=== PATIENT | male | born 1965 | race Hispanic/Latino ===

== ENCOUNTER 2017-08-29 08:17 | Emergency (ER) | payer SELFPAY ==
[2017-08-29] MEDS ORDERED: Ibuprofen 800 MG TAB ONE (09:37)
[2017-08-29] MEDS ORDERED: HYDROcodone/Acetaminophen 5/325 mg Tablet ONE (09:37)
--- NOTE | 2017-08-29 10:04 | RAD ---
3 VIEWS RIGHT WRIST: Date: 08/29/17 HISTORY: Swelling and pain for the last 3 days. Symptoms are worsening. COMPARISON: None. FINDINGS: Intercarpal and radiocarpal joint spaces are preserved. No fracture. No cortical irregularity. No per iosteal reaction. IMPRESSION: No fracture. POS: [facility]
== END 2017-08-29 09:56 | disposition home or self-care (01) ==
LOC: ERS 08:17
DX: M10.9 Gout, unspecified (principal); F17.210 Nicotine dependence, cigarettes, uncomplicated

== ENCOUNTER 2018-04-07 14:06 | Emergency (ER) | payer OTHER, SELFPAY ==
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
== END 2018-04-07 17:19 | disposition home or self-care (01) ==
LOC: ERS 14:06
DX: S50.812A Abrasion of left forearm, initial encounter (principal); F17.210 Nicotine dependence, cigarettes, uncomplicated; V89.2XXA Person injured in unspecified motor-vehicle accident, traffic, initial encounter

== ENCOUNTER 2018-04-27 09:00 | Emergency (ER) | payer SELFPAY ==
[2018-04-27 10:54] LABS: #Eosinphils 0.1 thou/uL (0.0-0.7); #Lymphocytes 1.6 thou/uL (1.20-3.40); #Monocytes 0.6 thou/uL (0.11-0.59); #Neutrophils 4.5 thou/uL (1.40-6.50); %Basophils 0.3 % (0.0-1.0); %Lymphocytes 24.2 % (21.0-51.0); %Monocytes 8.7 % (0.0-10.0); %Neutrophils 65.9 % (42.0-75.0); Hemoglobin 15.8 g/dL (14.0-18.0); Mean Corpuscular HGB CONC 34.9 g/dL (32.0-36.0); Mean Corpuscular Hemoglobin 32.5 pg (27.0-31.0); Mean Platelet Volume 6.3 fL (7.4-10.4); Platelet Count 232 thou/uL (130-400); RBC Distribution Width 11.7 % (11.5-14.5); Red Blood Cell (RBC) Count 4.87 mill/uL (4.70-6.10); White Blood Cell (WBC) Count 6.8 thou/uL (4.8-10.8)
[2018-04-27 11:14] LABS: ALT (SGPT) 16 U/L (8-55); AST (SGOT) 15 U/L (5-34); Albumin 4.4 g/dL (3.5-5.0); Alkaline Phosphatase 96 U/L (40-150); Anion Gap 14 mmol/L (10-20); BUN (Urea Nitrogen) 12 mg/dL (8.4-25.7); Bilirubin, Total 0.5 mg/dL (0.2-1.2); Calc. Creatinine Clearance 0 mL/min (70-130); Calcium 9.3 mg/dL (7.8-10.44); Carbon Dioxide 23 mmol/L (22-29); Chloride 105 mmol/L (98-107); Estimated GFR-MDRD Greater than 90; Globulin 3.4 g/dL (2.4-3.5); Glucose 94 mg/dL (70-105); Lipase 36 U/L (8-78); Potassium 3.9 mmol/L (3.5-5.1); Protein, Total 7.8 g/dL (6.0-8.3); Sodium 138 mmol/L (136-145)
[2018-04-27 11:18] LABS: CKMB 1.5 ng/mL (0-6.6); Troponin I Less than 0.010 ng/mL (< 0.028)
== END 2018-04-27 11:39 | disposition home or self-care (01) ==
LOC: ERS 09:00
DX: R10.32 Left lower quadrant pain (principal); F17.210 Nicotine dependence, cigarettes, uncomplicated
CPT/HCPCS: 80053; 82553; 83605; 83690; 84484; 85025; 85379; 93005; 96372; 96374

== ENCOUNTER 2018-06-03 07:03 | Emergency (ER) | payer OTHER, SELFPAY | END 2018-06-03 08:11 | disposition home or self-care (01) | LOC: ERS 07:03 | DX: M25.511 Pain in right shoulder (principal); F17.210 Nicotine dependence, cigarettes, uncomplicated | CPT/HCPCS: 99283 ==

== ENCOUNTER 2018-09-22 10:00 | Emergency (ER) | payer SELFPAY ==
[2018-09-22 10:39] LABS: #Lymphocytes 1.7 thou/uL (1.20-3.40); #Monocytes 1.6 thou/uL (0.11-0.59); #Neutrophils 9.8 thou/uL (1.40-6.50); %Basophils 0.1 % (0.0-1.0); %Monocytes 12.1 % (0.0-10.0); %Neutrophils 74.7 % (42.0-75.0); Hemoglobin 16.8 g/dL (14.0-18.0); Mean Corpuscular HGB CONC 35.3 g/dL (32.0-36.0); Mean Corpuscular Hemoglobin 31.4 pg (27.0-31.0); Mean Corpuscular Volume 88.8 fL (78.0-98.0); Mean Platelet Volume 6.3 fL (7.4-10.4); Platelet Count 225 thou/uL (130-400); RBC Distribution Width 11.1 % (11.5-14.5); Red Blood Cell (RBC) Count 5.35 mill/uL (4.70-6.10); White Blood Cell (WBC) Count 13.1 thou/uL (4.8-10.8)
[2018-09-22 11:00] LABS: ALT (SGPT) 15 U/L (8-55); AST (SGOT) 18 U/L (5-34); Albumin 4.3 g/dL (3.5-5.0); Alkaline Phosphatase 95 U/L (40-150); Anion Gap 12 mmol/L (10-20); BUN (Urea Nitrogen) 15 mg/dL (8.4-25.7); Bilirubin, Total 0.8 mg/dL (0.2-1.2); Calc. Creatinine Clearance 0 mL/min (70-130); Calcium 9.7 mg/dL (7.8-10.44); Carbon Dioxide 22 mmol/L (22-29); Chloride 98 mmol/L (98-107); Estimated GFR-MDRD Greater than 90; Globulin 4.4 g/dL (2.4-3.5); Glucose 103 mg/dL (70-105); Lipase 14 U/L (8-78); Potassium 3.4 mmol/L (3.5-5.1); Protein, Total 8.7 g/dL (6.0-8.3); Sodium 129 mmol/L (136-145)
[2018-09-22] MEDS ORDERED: Loperamide HCl 2 MG CAP ONE (11:22)
[2018-09-22] MEDS ORDERED: Ondansetron PF 4 MG/2 ML Vial ONE (11:22)
--- NOTE | 2018-09-22 11:25 | RAD ---
FRONTAL RADIOGRAPH CHEST: Date: 09-22-18 Comparison: None. History: Abdominal pain with nausea, vomiting, and diarrhea. FINDINGS: Mild increased linear interstitial density. No pneumothorax or pleural fluid. No focal consolidation or alveolar edema. IMPRESSION: No acute findings. POS: [facility]
--- NOTE | 2018-09-22 12:05 | CT ---
CT ABDOMEN AND PELVIS WITH IV CONTRAST: Date: 09/22/18 HISTORY: Upper abdominal pain and vomiting. FINDINGS: There are calcified granulomas in the spleen. No calcified gallstones are noted. The liver, pancreas, adrenal glands, and kidneys are normal. No free air, free fluid, or lymphadenopathy seen in the abdo men or pelvis. A normal appearing appendix is noted. The small bowel loops are not abnormally dilated . There are vascular calcifications without evidence of aneurysmal dilatation of the abdominal aorta. There are degenerative changes in the spine. There is a small, fat-containing inguinal hernia. IMPRESSION: No evidence of appendicitis or bowel obstruction. POS: [facility]
[2018-09-22 14:37] LABS: Bilirubin Negative (Negative); Blood, Urine Trace (Negative); Clarity CLEAR (Clear); Glucose, Urine (Dipstick) Negative (Negative); Leukocyte Negative (Negative); Nitrite Negative (Negative); Protein, Urine (Dipstick) Negative (Neg-Trace); pH, Urine 5.5 (5.0-9.0)
[2018-09-22 14:38] LABS: Bacteria/HPF None Seen HPF (None Seen); Hyaline Casts/LPF 0-3 HYALINE CAST LPF (0-3 Hyaline); Pathc Cast-AUWi Flag 0.14 (0-2.49); RBC/HPF 0-3 HPF (0-3); Squamous Epithelial None Seen HPF (0-3); WBC/HPF None Seen HPF (0-3)
[2018-09-22 14:41] LABS: Specific Gravity, Urine Greater than 1.060 (1.002-1.036)
[2018-09-22] MEDS ORDERED: Iopamidol 370 76% 50 ML VIAL FS ONE (16:30)
== END 2018-09-22 12:41 | disposition home or self-care (01) ==
LOC: ERS 10:00
DX: R10.10 Upper abdominal pain, unspecified (principal); R11.2 Nausea with vomiting, unspecified; R19.7 Diarrhea, unspecified; F17.210 Nicotine dependence, cigarettes, uncomplicated
CPT/HCPCS: 71045; 74177; 80053; 81015; 83690; 85025; 96374; J2405

== ENCOUNTER 2019-03-11 15:21 | Emergency (ER) | payer SELFPAY ==
[2019-03-11 15:50] LABS: #Lymphocytes 1.2 thou/uL (1.20-3.40); #Monocytes 0.4 thou/uL (0.11-0.59); #Neutrophils 5.5 thou/uL (1.40-6.50); %Basophils 0.2 % (0.0-1.0); %Eosinophils 0.1 % (0.0-10.0); %Lymphocytes 16.6 % (21.0-51.0); %Monocytes 5.5 % (0.0-10.0); %Neutrophils 77.6 % (42.0-75.0); Hemoglobin 16.8 g/dL (14.0-18.0); Mean Corpuscular HGB CONC 35.1 g/dL (32.0-36.0); Mean Corpuscular Hemoglobin 31.8 pg (27.0-31.0); Mean Corpuscular Volume 90.7 fL (78.0-98.0); Mean Platelet Volume 6.1 fL (7.4-10.4); Platelet Count 264 thou/uL (130-400); RBC Distribution Width 11.5 % (11.5-14.5); Red Blood Cell (RBC) Count 5.27 mill/uL (4.70-6.10); White Blood Cell (WBC) Count 7.1 thou/uL (4.8-10.8)
[2019-03-11 16:14] LABS: ALT (SGPT) 21 U/L (8-55); AST (SGOT) 27 U/L (5-34); Albumin 4.9 g/dL (3.5-5.0); Alkaline Phosphatase 91 U/L (40-150); Anion Gap 17 mmol/L (10-20); BUN (Urea Nitrogen) 19 mg/dL (8.4-25.7); Calc. Creatinine Clearance 0 mL/min (70-130); Calcium 10.6 mg/dL (7.8-10.44); Carbon Dioxide 23 mmol/L (22-29); Chloride 99 mmol/L (98-107); Estimated GFR-MDRD 79; Globulin 3.8 g/dL (2.4-3.5); Glucose 125 mg/dL (70-105); Lipase 12 U/L (8-78); Potassium 3.4 mmol/L (3.5-5.1); Protein, Total 8.7 g/dL (6.0-8.3); Sodium 136 mmol/L (136-145)
[2019-03-11] MEDS ORDERED: Ondansetron PF 4 MG/2 ML Vial ONE (18:44)
--- NOTE | 2019-03-11 18:47 | RAD ---
XR Chest 1 View Portable History: Chest pain Comparison: Radiograph 09/22/2018 Findings: Lungs are clear. No pneumothorax or effusion. Cardiac silhouette and mediastinal contours a re similar. No acute osseous abnormality. Impression: No acute intrathoracic abnormality.
== END 2019-03-11 20:28 | disposition home or self-care (01) ==
LOC: ERS 15:21
DX: E86.0 Dehydration (principal); R11.2 Nausea with vomiting, unspecified; F17.210 Nicotine dependence, cigarettes, uncomplicated
CPT/HCPCS: 36415; 71045; 80053; 82550; 83690; 85025; 93005; 96361; 96374; J2405

== ENCOUNTER 2019-04-26 14:57 | Emergency (ER) | payer SELFPAY ==
[2019-04-26] MEDS ORDERED: Ketorolac Tromethamine 30 MG/ML VIAL ONE (15:59)
--- NOTE | 2019-04-26 17:06 | CT ---
CT LUMBAR SPINE WITHOUT CONTRAST: INDICATIONS: Fall with injury to low back. Low back pain. Radiation to right lower extremity. COMPARISON: CT lumbar spine dated 08/12/2015. TECHNIQUE: Axial tomograms obtained with multiplanar reconstructions. FINDINGS: Degenerative changes of the lumbar spine again noted. No evidence of compression deformity or acute fracture. Prominent osteophytes from the lumbar vertebrae. Degenerative disk changes are seen at mu ltiple levels. Vacuum phenomena seen at L3-L4, L4-L5, and L5-S1, with loss of disk space. These fin dings appear stable from the prior exam. At T12-L1, posterior disk bulge with calcification along the posterior disk margin mildly flattens th e thecal sac. No central canal stenosis. At L1-L2, mild disk bulge without central canal stenosis. At L2-L3, broad-based disk bulge with prominent facet and ligamentous hypertrophy, resulting in moder ate central canal stenosis. Left foraminal stenosis due to hypertrophic change and disk bulge. At L3-L4, posterior disk bulge. There is a posterior osteophyte extending from the inferior corner o f L3. These changes compress the thecal sac and are associated with facet and ligamentous hypertroph y, resulting in moderate to severe central canal stenosis. Bilateral foraminal stenosis due to hyper trophic change, more prominent on the left. At L4-L5, disk bulge is seen with small posterior spurs. Facet and ligamentous hypertrophy. Moderat e central canal stenosis. Bilateral foraminal stenosis secondary to hypertrophic change. At L5-S1, a tiny gas pocket is seen in the spinal canal, slightly to the right of midline, along the posterior L5 vertebra, just above the L5-S1 disk space. Diffuse disk bulge at L5-S1 with bilateral f oraminal extension, more prominent on the right. The tiny gas pocket indicates disk extrusion with g as from the disk space extending superiorly, along the posterior margin of the L5 vertebra, and the s danny canal mildly compressing the anterior thecal sac. There is moderate central canal stenosis at the disk space. Bilateral foraminal stenosis due to hypertrophic change. IMPRESSION: Degenerative disk changes at all levels of the lumbar spine, as described. There is no evidence of a cute fracture or compression. Central canal and foraminal stenosis at multiple levels. New findings at the L5-S1 level, as described above. POS: [facility]
== END 2019-04-26 19:40 | disposition home or self-care (01) ==
LOC: ERS 14:57
DX: M54.42 Lumbago with sciatica, left side (principal); F17.210 Nicotine dependence, cigarettes, uncomplicated
CPT/HCPCS: 72131; 96372; J1885

== ENCOUNTER 2019-05-26 08:17 | Emergency (ER) | payer SELFPAY ==
[2019-05-26 08:49] LABS: #Eosinphils 0.1 thou/uL (0.0-0.7); #Lymphocytes 1.2 thou/uL (1.20-3.40); #Monocytes 0.6 thou/uL (0.11-0.59); %Basophils 0.4 % (0.0-1.0); %Eosinophils 0.7 % (0.0-10.0); %Lymphocytes 15.4 % (21.0-51.0); %Monocytes 7.4 % (0.0-10.0); %Neutrophils 76.1 % (42.0-75.0); Hemoglobin 16.9 g/dL (14.0-18.0); Mean Corpuscular HGB CONC 34.9 g/dL (32.0-36.0); Mean Corpuscular Hemoglobin 32.1 pg (27.0-31.0); Mean Corpuscular Volume 91.9 fL (78.0-98.0); Mean Platelet Volume 6.1 fL (7.4-10.4); Platelet Count 287 thou/uL (130-400); RBC Distribution Width 11.6 % (11.5-14.5); Red Blood Cell (RBC) Count 5.25 mill/uL (4.70-6.10); White Blood Cell (WBC) Count 7.9 thou/uL (4.8-10.8)
[2019-05-26 09:06] LABS: ALT (SGPT) 18 U/L (8-55); AST (SGOT) 16 U/L (5-34); Albumin 4.7 g/dL (3.5-5.0); Alkaline Phosphatase 101 U/L (40-150); Anion Gap 14 mmol/L (10-20); BUN (Urea Nitrogen) 12 mg/dL (8.4-25.7); Bilirubin, Total 0.6 mg/dL (0.2-1.2); Calc. Creatinine Clearance 0 mL/min (70-130); Calcium 10.3 mg/dL (7.8-10.44); Carbon Dioxide 25 mmol/L (22-29); Chloride 102 mmol/L (98-107); Estimated GFR-MDRD 88; Globulin 3.3 g/dL (2.4-3.5); Glucose 125 mg/dL (70-105); Lipase 23 U/L (8-78); Potassium 3.6 mmol/L (3.5-5.1); Sodium 137 mmol/L (136-145)
[2019-05-26] MEDS ORDERED: Ondansetron ODT 4 MG TAB ONE (09:09)
--- NOTE | 2019-05-26 09:48 | RAD ---
EXAM: Single view of the chest HISTORY: Abdominal pain with nausea and vomiting COMPARISON: 03/11/2019 FINDINGS: Single view of the chest shows a normal sized cardiomediastinal silhouette. There is no joe dence of consolidation, mass, or pleural effusion. The bones are unremarkable. IMPRESSION: No evidence of acute cardiopulmonary disease
[2019-05-26] MEDS ORDERED: Ondansetron PF 4 MG/2 ML Vial ONE (10:06)
--- NOTE | 2019-05-26 10:53 | CT ---
CT ABDOMEN PELVIS WITH IV CONTRAST: HISTORY: Abdominal pain, vomiting, nausea. Colonic resection in 2006 COMPARISON: 09/22/2018 FINDINGS: The lung bases are clear. No calcific gallstones are seen. Multiple calcified splenic granulomas are again seen. The liver, pancreas, adrenal glands and kidneys appear normal. No free air, free fluid or lymphadenopathy seen in the abdomen or pelvis. A normal-appearing appendix is seen. The small bowel loops are not abnormally dilated. There are vascular calcifications without evidence of aneurysmal dilatation of the abdominal aorta. Degenerative changes are present in the spine. Small fat-containing bilateral inguinal hernia, left larger than right are seen. IMPRESSION: No acute process.
[2019-05-26] MEDS ORDERED: ISOVUE-370 76%-LOCM 1 ML ONE (17:13)
--- NOTE | 2019-05-29 01:03 | EKG ---
Test Reason : Blood Pressure : / mmHG Vent. Rate : 050 BPM Atrial Rate : 050 BPM P-R Int : 174 ms QRS Dur : 092 ms QT Int : 472 ms P-R-T Axes : 027 045 043 degrees QTc Int : 430 ms Sinus bradycardia Otherwise normal ECG Confirmed by COLT ANDRADE ([id number]), newspaper editor managing RAFAT PIPER ([id number]) on 05/29/2019 1:02:17 AM Referred By: Confirmed By:COLT ANDRADE
== END 2019-05-26 11:30 | disposition home or self-care (01) ==
LOC: ERS 08:17
DX: R10.9 Unspecified abdominal pain (principal); R00.1 Bradycardia, unspecified; R11.2 Nausea with vomiting, unspecified; R10.815 Periumbilic abdominal tenderness; F17.210 Nicotine dependence, cigarettes, uncomplicated
CPT/HCPCS: 36415; 71045; 74177; 80053; 83690; 84484; 85025; 93005; 96361; 96374; J2405; Q0162; Q9966

== ENCOUNTER 2022-09-08 09:48 | Inpatient (IN) | payer OTHER, SELFPAY ==
[2022-09-08] MEDS ORDERED: Morphine 4 MG/ML VIAL ONE ×2 (10:19→11:41)
[2022-09-08] MEDS ORDERED: CEFAZOLIN 2 GM in Sodium Chloride 0.9% 100 ML IVPB SCH (12:00)
[2022-09-08] MEDS ORDERED: Ondansetron PF 4 MG/2 ML Vial IVP PRN (13:40)
[2022-09-08] MEDS ORDERED: Dextrose 5% in Water 1,000 ML IV PRN (13:40)
[2022-09-08] MEDS ORDERED: Ondansetron ODT 4 MG TAB PO PRN (13:40)
[2022-09-08] MEDS ORDERED: HYDROcodone/Acetaminophen 10/325 mg Tablet PO PRN (13:40)
[2022-09-08] MEDS ORDERED: hydrALAZINE 20 MG/ML VIAL SLOW IVP PRN (13:40)
[2022-09-08] MEDS ORDERED: Dextrose 50% Abboject 50 ML SYRINGE SLOW IVP PRN (13:40)
[2022-09-08] MEDS ORDERED: Morphine 4 MG/ML VIAL SLOW IVP PRN ×2 (13:40→13:56)
[2022-09-08] MEDS ORDERED: traMADol HCl 50 MG TAB PO PRN ×2 (13:47→20:33)
[2022-09-08] MEDS ORDERED: Cyclobenzaprine 10 MG TAB PO PRN (13:47)
[2022-09-08 14:13] LABS: #Eosinphils 0.1 thou/uL (0.0-0.7); #Lymphocytes 2.3 thou/uL (1.20-3.40); #Monocytes 0.9 thou/uL (0.11-0.59); #Neutrophils 7.7 thou/uL (1.40-6.50); %Basophils 0.1 % (0.0-1.0); %Eosinophils 0.7 % (0.0-10.0); %Lymphocytes 21.3 % (21.0-51.0); %Monocytes 8.3 % (0.0-10.0); %Neutrophils 69.6 % (42.0-75.0); Hemoglobin 15.2 g/dL (14.0-18.0); Mean Corpuscular HGB CONC 34.1 g/dL (32.0-36.0); Mean Corpuscular Hemoglobin 32.2 pg (27.0-31.0); Mean Corpuscular Volume 94.5 fl (78.0-98.0); Mean Platelet Volume 6.4 fL (7.4-10.4); Platelet Count 249 10x3/uL (130-400); RBC Distribution Width 11.8 % (11.5-14.5); Red Blood Cell (RBC) Count 4.73 mill/uL (4.70-6.10)
[2022-09-08 14:27] LABS: Phosphorus 3.4 mg/dL (2.3-4.7)
[2022-09-08 14:30] LABS: ALT (SGPT) 22 U/L (8-55); AST (SGOT) 18 U/L (5-34); Albumin 3.9 g/dL (3.5-5.0); Alkaline Phosphatase 75 U/L (40-110); Anion Gap 13 mmol/L (10-20); BUN (Urea Nitrogen) 14 mg/dL (8.4-25.7); Bilirubin, Total 0.4 mg/dL (0.2-1.2); Calc. Creatinine Clearance 0 mL/min (70-130); Carbon Dioxide 23 mmol/L (22-29); Chloride 103 mmol/L (98-107); Estimated GFR 88; Globulin 3.4 g/dL (2.4-3.5); Glucose 140 mg/dL (70-105); Magnesium 2.2 mg/dL (1.6-2.6); Protein, Total 7.3 g/dL (6.0-8.3); Sodium 135 mmol/L (136-145)
[2022-09-08 15:18] VITALS: BMI 39.9
[2022-09-08] MEDS: Acetaminophen 500 MG TAB PO SCH ×2 (18:38→23:27)
[2022-09-08] MEDS: Ketorolac Tromethamine 30 MG/ML VIAL IVP SCH ×2 (18:38→23:28)
[2022-09-08] MEDS: traMADol HCl 50 MG TAB PO SCH ×2 (18:39→23:27)
[2022-09-08] MEDS: Senokot S 8.6-50 MG TAB PO SCH (20:14)
[2022-09-08] MEDS: Famotidine 20 MG TAB PO SCH (20:14)
[2022-09-08 20:41] LABS: SARS-CoV-2 NAA Rapid Test Not Detected (NotDetected)
[2022-09-08] MEDS ORDERED: Sodium Chloride 0.9% 1,000 ML IV SCH (23:00)
[2022-09-09] MEDS: Acetaminophen 500 MG TAB PO SCH ×4 (05:26→23:22)
[2022-09-09] MEDS: traMADol HCl 50 MG TAB PO SCH ×4 (05:27→23:22)
[2022-09-09] MEDS: Ketorolac Tromethamine 30 MG/ML VIAL IVP SCH ×4 (05:27→23:23)
[2022-09-09 06:35] LABS: #Basophils 0.1 thou/uL (0.0-0.2); #Eosinphils 0.2 thou/uL (0.0-0.7); #Lymphocytes 2.3 thou/uL (1.20-3.40); #Neutrophils 4.3 thou/uL (1.40-6.50); %Basophils 0.8 % (0.0-1.0); %Eosinophils 2.5 % (0.0-10.0); %Lymphocytes 29.7 % (21.0-51.0); %Monocytes 12.7 % (0.0-10.0); %Neutrophils 54.4 % (42.0-75.0); Hemoglobin 15.2 g/dL (14.0-18.0); Mean Corpuscular HGB CONC 33.5 g/dL (32.0-36.0); Mean Corpuscular Volume 95.8 fl (78.0-98.0); Platelet Count 244 10x3/uL (130-400); Red Blood Cell (RBC) Count 4.75 mill/uL (4.70-6.10); White Blood Cell (WBC) Count 7.8 10x3/uL (4.8-10.8)
[2022-09-09 06:50] LABS: Phosphorus 3.6 mg/dL (2.3-4.7)
[2022-09-09 06:59] LABS: Anion Gap 12 mmol/L (10-20); BUN (Urea Nitrogen) 18 mg/dL (8.4-25.7); Calc. Creatinine Clearance 151 mL/min (70-130); Calcium 8.6 mg/dL (7.8-10.44); Carbon Dioxide 23 mmol/L (22-29); Chloride 104 mmol/L (98-107); Estimated GFR 102; Glucose 116 mg/dL (70-105); Magnesium 2.1 mg/dL (1.6-2.6); Sodium 135 mmol/L (136-145)
[2022-09-09] MEDS: Famotidine 20 MG TAB PO SCH ×2 (07:52→20:25)
[2022-09-09] MEDS: Senokot S 8.6-50 MG TAB PO SCH ×2 (07:52→20:25)
[2022-09-09] MEDS: Polyethylene Glycol 3350 17 GM Packet PO SCH (07:53)
[2022-09-09] MEDS ORDERED: Fentanyl 100 MCG/2 ML VIAL ONE (10:54)
[2022-09-09] MEDS ORDERED: Midazolam HCl 2 mg/2 ml Vial ONE (10:54)
[2022-09-09] MEDS ORDERED: Ropivacaine 0.5% HCl/PF (150 MG/30 ML VIAL) ONE (10:54)
[2022-09-09] MEDS ORDERED: HYDROcodone/Acetaminophen 10/325 mg Tablet PO PRN (11:33)
[2022-09-09] MEDS ORDERED: Fentanyl 250 MCG/5 ML VIAL ONE (11:35)
[2022-09-09] MEDS ORDERED: FENTANYL 50 MCG/ML 1 ML VIAL SLOW IVP PRN (11:37)
[2022-09-09] MEDS ORDERED: CEFAZOLIN 2 GM VIAL ONE (11:43)
[2022-09-09] MEDS ORDERED: Sodium Chloride 0.9% 100 ML ONE (11:43)
[2022-09-09] MEDS ORDERED: Ketorolac Tromethamine 30 MG/ML VIAL ONE (11:50)
[2022-09-09] MEDS ORDERED: ePHEDrine 50 MG/ML VIAL ONE (11:50)
[2022-09-09] MEDS ORDERED: Ondansetron PF 4 MG/2 ML Vial ONE (11:50)
[2022-09-09] MEDS ORDERED: Glycopyrrolate 0.2 MG/ML 5 ML SYRINGE ONE (11:50)
[2022-09-09] MEDS ORDERED: Rocuronium Bromide 10 MG/ML (10ML VIAL) ONE (11:50)
[2022-09-09] MEDS ORDERED: Dexamethasone 20 MG/5 ML VIAL ONE (11:50)
[2022-09-09] MEDS ORDERED: PROPOFOL 200 MG/20 ML VIAL ONE (11:50)
[2022-09-09] MEDS ORDERED: NEOSTIGMINE 3 MG/3 ML SYR 3 MG/3 ML SYRINGE ONE (11:50)
[2022-09-09] MEDS ORDERED: HYDROmorphone 2 MG/ML VIAL SLOW IVP PRN (14:02)
[2022-09-09] MEDS ORDERED: Ondansetron HCl/PF 4 MG/2 ML Vial IVP PRN (14:02)
[2022-09-09] MEDS: Morphine 4 MG/ML VIAL SLOW IVP PRN (18:46)
[2022-09-09] MEDS ORDERED: CEFAZOLIN 2 GM in Sodium Chloride 0.9% 100 ML IVPB SCH (20:00)
[2022-09-09] MEDS: Cyclobenzaprine 10 MG TAB PO PRN (20:25)
[2022-09-09] MEDS: CEFAZOLIN 2 GM in Sodium Chloride 0.9% 100 ML IVPB SCH (20:28)
[2022-09-10] MEDS: Morphine 4 MG/ML VIAL SLOW IVP PRN (01:14)
[2022-09-10] MEDS: CEFAZOLIN 2 GM in Sodium Chloride 0.9% 100 ML IVPB SCH ×2 (04:59→12:36)
[2022-09-10] MEDS: Acetaminophen 500 MG TAB PO SCH ×4 (05:00→23:15)
[2022-09-10] MEDS: Ketorolac Tromethamine 30 MG/ML VIAL IVP SCH ×4 (05:01→23:15)
[2022-09-10] MEDS: traMADol HCl 50 MG TAB PO SCH ×4 (05:01→23:14)
[2022-09-10 07:58] LABS: #Lymphocytes 1.4 thou/uL (1.20-3.40); #Monocytes 1.2 thou/uL (0.11-0.59); #Neutrophils 12.6 thou/uL (1.40-6.50); %Basophils 0.2 % (0.0-1.0); %Eosinophils 0.1 % (0.0-10.0); %Lymphocytes 8.9 % (21.0-51.0); %Monocytes 7.8 % (0.0-10.0); Hemoglobin 14.9 g/dL (14.0-18.0); Mean Corpuscular HGB CONC 33.8 g/dL (32.0-36.0); Mean Corpuscular Volume 94.6 fl (78.0-98.0); Mean Platelet Volume 6.3 fL (7.4-10.4); Platelet Count 248 10x3/uL (130-400); RBC Distribution Width 11.6 % (11.5-14.5); Red Blood Cell (RBC) Count 4.65 mill/uL (4.70-6.10); White Blood Cell (WBC) Count 15.2 10x3/uL (4.8-10.8)
[2022-09-10] MEDS: Senokot S 8.6-50 MG TAB PO SCH ×2 (10:06→20:35)
[2022-09-10] MEDS: Polyethylene Glycol 3350 17 GM Packet PO SCH (10:07)
[2022-09-10] MEDS: Famotidine 20 MG TAB PO SCH ×2 (10:07→20:35)
[2022-09-10] MEDS: Enoxaparin Sodium 30 MG/0.3 ML SYRINGE SC SCH (20:35)
[2022-09-11] MEDS: Ketorolac Tromethamine 30 MG/ML VIAL IVP SCH ×2 (05:18→12:27)
[2022-09-11] MEDS: Acetaminophen 500 MG TAB PO SCH ×2 (05:19→12:26)
[2022-09-11] MEDS: traMADol HCl 50 MG TAB PO SCH ×2 (05:19→12:26)
[2022-09-11] MEDS: Cyclobenzaprine 10 MG TAB PO PRN (08:28)
[2022-09-11] MEDS: Famotidine 20 MG TAB PO SCH (08:28)
[2022-09-11] MEDS: Enoxaparin Sodium 30 MG/0.3 ML SYRINGE SC SCH (08:28)
[2022-09-11 08:31] VITALS: TEMP 98.4
[2022-09-11] MEDS: Polyethylene Glycol 3350 17 GM Packet PO SCH (08:34)
[2022-09-11] MEDS: Senokot S 8.6-50 MG TAB PO SCH (08:34)
[2022-09-11 13:10] VITALS: BP 161/81
== END 2022-09-11 15:10 | disposition home or self-care (01) | DRG 502 ==
LOC: ERS 09:48 → SURG A 13:36
PROVIDERS: ADMIT Surgery; ATTEND Surgery
PROC: 0QSF04Z Reposition Left Patella with Internal Fixation Device, Open Approach (ICD-10-PCS; principal; 2022-09-09)
PROC: 0LQL0ZZ Repair Right Upper Leg Tendon, Open Approach (ICD-10-PCS; 2022-09-09)
DX: S82.002A Unspecified fracture of left patella, initial encounter for closed fracture (principal); S76.111A Strain of right quadriceps muscle, fascia and tendon, initial encounter; E66.9 Obesity, unspecified; Z20.822 Contact with and (suspected) exposure to COVID-19; I10 Essential (primary) hypertension; Z68.39 Body mass index [BMI] 39.0-39.9, adult; Y92.096 Garden or yard of other non-institutional residence as the place of occurrence of the external cause; F17.210 Nicotine dependence, cigarettes, uncomplicated; W01.0XXA Fall on same level from slipping, tripping and stumbling without subsequent striking against object, initial encounter
CPT/HCPCS: 36415; 71045; 80048; 80053; 83735; 84100; 85025; 93005; 93010; 96374; 96376; C1713; G0390; J1100; J1650; J1885; J2250; J2270; J2405; J2704; J2795; J3010; J3490; J7050; L1830; U0002

== ENCOUNTER 2022-10-20 20:03 | Emergency (ER) | payer SELFPAY ==
[~2022-10-20 20:03] MED LIST: Iopamidol-370 76% 500 ML 1 ML ONE
[2022-10-20 20:35] LABS: #Lymphocytes 1.5 thou/uL (1.20-3.40); #Monocytes 0.6 thou/uL (0.11-0.59); #Neutrophils 8.7 thou/uL (1.40-6.50); %Basophils 0.3 % (0.0-1.0); %Eosinophils 0.1 % (0.0-10.0); %Lymphocytes 13.5 % (21.0-51.0); %Monocytes 5.2 % (0.0-10.0); %Neutrophils 80.9 % (42.0-75.0); Hemoglobin 16.9 g/dL (14.0-18.0); Mean Corpuscular HGB CONC 34.3 g/dL (32.0-36.0); Mean Corpuscular Hemoglobin 31.6 pg (27.0-31.0); Mean Corpuscular Volume 91.9 fl (78.0-98.0); Platelet Count 306 10x3/uL (130-400); RBC Distribution Width 11.6 % (11.5-14.5); Red Blood Cell (RBC) Count 5.36 mill/uL (4.70-6.10); White Blood Cell (WBC) Count 10.8 10x3/uL (4.8-10.8)
[2022-10-20 20:54] LABS: ALT (SGPT) 32 U/L (8-55); AST (SGOT) 20 U/L (5-34); Albumin 4.5 g/dL (3.5-5.0); Alkaline Phosphatase 89 U/L (40-110); Anion Gap 17 mmol/L (10-20); BUN (Urea Nitrogen) 11 mg/dL (8.4-25.7); Bilirubin, Total 0.5 mg/dL (0.2-1.2); Calc. Creatinine Clearance 0 mL/min (70-130); Calcium 10.2 mg/dL (7.8-10.44); Carbon Dioxide 24 mmol/L (22-29); Chloride 100 mmol/L (98-107); Estimated GFR 97; Globulin 3.9 g/dL (2.4-3.5); Glucose 151 mg/dL (70-105); Protein, Total 8.4 g/dL (6.0-8.3); Sodium 137 mmol/L (136-145)
[2022-10-20] MEDS ORDERED: Ondansetron PF 4 MG/2 ML Vial ONE (21:55)
[2022-10-20] MEDS ORDERED: Pantoprazole 40 MG VIAL ONE (22:40)
[2022-10-20 23:01] LABS: SARS-CoV-2 NAA Rapid Test Not Detected (NotDetected)
== END 2022-10-20 22:55 | disposition home or self-care (01) ==
LOC: ERS 20:03
DX: K52.9 Noninfective gastroenteritis and colitis, unspecified (principal); Z20.822 Contact with and (suspected) exposure to COVID-19
CPT/HCPCS: 36415; 74177; 80053; 83690; 85025; 96374; 96375; C9113; J2405; Q9967

== ENCOUNTER 2023-11-16 03:37 | Emergency (ER) | payer SELFPAY ==
[2023-11-16] MEDS ORDERED: Morphine 4 MG/ML VIAL ONE (03:59)
[2023-11-16] MEDS ORDERED: Ondansetron PF 4 MG/2 ML Vial ONE ×2 (03:59→05:41)
[2023-11-16 04:11] LABS: #Basophils 0.1 thou/uL (0.0-0.2); #Eosinphils 0.1 thou/uL (0.0-0.7); #Monocytes 0.9 thou/uL (0.11-0.59); #Neutrophils 6.9 thou/uL (1.40-6.50); %Basophils 0.5 % (0.0-1.0); %Eosinophils 1.3 % (0.0-10.0); %Lymphocytes 26.5 % (21.0-51.0); %Monocytes 8.2 % (0.0-10.0); Hematocrit 46.2 % (42.0-52.0); Hemoglobin 16.3 g/dL (14.0-18.0); Mean Corpuscular HGB CONC 35.3 g/dL (32.0-36.0); Mean Corpuscular Hemoglobin 31.7 pg (27.0-31.0); Mean Corpuscular Volume 89.7 fl (78.0-98.0); Mean Platelet Volume 8.5 fL (7.4-10.4); Platelet Count 255 10x3/uL (130-400); RBC Distribution Width 12.3 % (11.5-14.5); Red Blood Cell (RBC) Count 5.15 mill/uL (4.70-6.10); White Blood Cell (WBC) Count 10.9 10x3/uL (4.8-10.8)
[2023-11-16 04:42] LABS: ALT (SGPT) 21 U/L (8-55); AST (SGOT) 17 U/L (5-34); Albumin 4.6 g/dL (3.5-5.0); Alkaline Phosphatase 112 U/L (40-110); Anion Gap 17 mmol/L (10-20); BUN (Urea Nitrogen) 15 mg/dL (8.4-25.7); Bilirubin, Total 0.3 mg/dL (0.2-1.2); Calc. Creatinine Clearance 0 mL/min (70-130); Calcium 10.1 mg/dL (7.8-10.44); Carbon Dioxide 20 mmol/L (22-29); Chloride 106 mmol/L (98-107); Estimated GFR 89; Globulin 3.5 g/dL (2.4-3.5); Glucose 126 mg/dL (70-105); Lipase 71 U/L (8-78); Potassium 3.8 mmol/L (3.5-5.1); Protein, Total 8.1 g/dL (6.0-8.3); Sodium 139 mmol/L (136-145)
[2023-11-16 04:46] LABS: Troponin I 0.011 ng/mL (< 0.028)
[2023-11-16] MEDS ORDERED: Ketorolac Tromethamine 30 MG (1 mL) VIAL ONE ×2 (05:41→08:54)
[2023-11-16] MEDS ORDERED: Metoclopramide HCl 10 MG (2 mL) VIAL ONE (06:03)
[2023-11-16] MEDS ORDERED: diphenhydrAMINE 50 MG/ML VIAL ONE (06:03)
[2023-11-16 09:15] LABS: Bacteria/HPF None Seen HPF (None Seen); Bilirubin Negative (Negative); Blood, Urine Negative (Negative); CAUTI Indications for Culture Pelvic or flank pain; Clarity Clear (Clear); Glucose, Urine (Dipstick) Normal (Negative); Ketone, Urine Negative (Negative); Leukocyte Negative Leu/uL (Negative); Nitrite Negative (Negative); Protein, Urine (Dipstick) Negative (Neg-Trace); Squamous Epithelial None Seen HPF (0-3); Urobilinogen Normal mg/dL (Less than 2); WBC/HPF 0-3 HPF (0-3); pH, Urine 7.5 (5.0-9.0)
[2023-11-16 09:26] LABS: Specific Gravity, Urine 1.048 (1.002-1.036)
[2023-11-16 09:27] LABS: Urine Culture Reflex No No
== END 2023-11-16 10:07 | disposition home or self-care (01) ==
LOC: ERS 03:37
DX: M54.50 Low back pain, unspecified (principal); F17.210 Nicotine dependence, cigarettes, uncomplicated; Z55.6 Problems related to health literacy
CPT/HCPCS: 74177; 80053; 81001; 83690; 84484; 85025; 93005; 96361; 96365; 96375; 96376; J1200; J1885; J2270; J2405; J2765

== ENCOUNTER 2025-09-05 12:58 | Emergency (ER) | payer OTHER ==
[~2025-09-05 12:58] MED LIST changes: -Iopamidol-370 76% 500 ML 1 ML ONE; +Iopamidol-370 76% 500 ML MDV (1 ML CHARGE) ONE
[2025-09-05 14:13] LABS: #Basophils 0.04 10x3/uL (0.0-0.2); #Eosinophils 0.12 10x3/uL (0.0-0.7); #Monocytes 0.79 10x3/uL (0.11-0.59); #Neutrophils 5.01 10x3/uL (1.40-6.50); %Basophils 0.5 % (0.0-1.0); %Eosinophils 1.4 % (0.0-10.0); %Lymphocytes 29.2 % (21.0-51.0); %Monocytes 9.3 % (0.0-10.0); %Neutrophils 59.1 % (42.0-75.0); Hematocrit 43.1 % (42.0-52.0); Hemoglobin 14.8 g/dL (14.0-18.0); Mean Corpuscular Hemoglobin 30.6 pg (27.0-31.0); Mean Corpuscular Volume 89.0 fL (78.0-98.0); Platelet Count 246 10x3/uL (130-400); Red Blood Cell (RBC) Count 4.84 mill/uL (4.70-6.10); White Blood Cell (WBC) Count 8.47 10x3/uL (4.8-10.8)
[2025-09-05 14:32] LABS: ALT (SGPT) 38 U/L (Less than 45); AST (SGOT) 30 U/L (11-34); Albumin 3.7 g/dL (3.1-4.5); Alkaline Phosphatase 111 U/L (40-110); Anion Gap 12 mmol/L (10-20); BUN (Urea Nitrogen) 9 mg/dL (8.4-25.7); Bilirubin, Total 0.2 mg/dL (0.3-1.2); Calc. Creatinine Clearance 0 mL/min (70-130); Calcium 9.1 mg/dL (7.8-10.44); Carbon Dioxide 24 mmol/L (23-31); Chloride 107 mmol/L (98-107); Globulin 4.0 g/dL (2.4-3.5); Glucose 198 mg/dL (80-115); Potassium 4.0 mmol/L (3.5-5.1); Sodium 139 mmol/L (136-145)
== END 2025-09-05 18:20 | disposition home or self-care (01) ==
LOC: ERS 12:58
DX: R07.9 Chest pain, unspecified (principal); F17.210 Nicotine dependence, cigarettes, uncomplicated
CPT/HCPCS: 36415; 71275; 80053; 84484; 85025; 85379; 93005; 96374